=== PATIENT | male | born 1950 | race Caucasian/White ===

== ENCOUNTER 2019-11-22 20:23 | Emergency (ER) | payer MEDICARE, SELFPAY ==
[2019-11-22 20:26] VITALS: BP 156/72; PULSE 55; RESP 15; TEMP 36.1; O2SAT 99
--- NOTE | 2019-11-22 21:34 | ED.WOUNDLAC ---
HPI - Wound/Laceration General Chief Complaint: Wound/Laceration Stated Complaint: cook box filler in arm Time Seen by Provider: 11/22/19 20:48 Source: patient Mode of arrival: ambulatory Limitations: no limitations History of Present Illness HPI narrative: This is a 69-year-old male that presents emergency department for left forearm laceration sustained just prior to arrival. Reports he sustained a laceration from a cook box filler. He is up-to-date on tetanus. Reports bleeding is under control. Denies decreased range of motion or numbness. Related Data Home Medications Medication Instructions Recorded Confirmed Aspir-81 81 mg PO DAILY 11/22/19 11/22/19 Allergies Allergy/AdvReac Type Severity Reaction Status Date / Time No Known Allergies Allergy Unverified 10/05/13 22:03 Review of Systems Review of Systems: Narrative: CONSTITUTIONAL: Denies fever SKIN: Reports laceration All systems reviewed & are unremarkable except as noted in HPI and below PMFSH Social History Social History Smoking status: Never smoker Alcohol intake: never Exam Narrative: Exam Narrative: GENERAL: Well-appearing, well-nourished, and in no acute distress. HEAD: Normocephalic, atraumatic. EYES: EOMI. EXTREMITIES: Normal range of motion. No edema. Left forearm ventral surface with 2 cm linear laceration into subcutaneous tissue, bleeding controlled SKIN: Warm, dry, no rash. NEURO: No focal deficits. Alert and oriented x3. PSYCH: Normal mood and affect Course Vital Signs Vital signs: Vital Signs Temperature 97 F L 11/22/19 20:26 Pulse Rate 55 L 11/22/19 20:26 Respiratory Rate 15 11/22/19 20:26 Blood Pressure 156/72 H 11/22/19 20:26 Pulse Oximetry 99 11/22/19 20:26 Temperature 97 F L 11/22/19 20:26 Pulse Rate 55 L 11/22/19 20:26 Respiratory Rate 15 11/22/19 20:26 Blood Pressure 156/72 H 11/22/19 20:26 Pulse Oximetry 99 11/22/19 20:26 Procedures Laceration Laceration 1: Date: 11/22/19 Time: 22:06 Site: upper extremity Side (If applicable): left Size (cm): 2 Description: linear Depth: simple, single layer Local Anesthetic: lidocaine 1% and with epi Amount of anesthesia used (mL): 2 Pre-repair: irrigated ====== Skin Level ====== Skin layer closed with: nylon Size (cm): 5-0 Number of sutures: 3 Technique: simple, interrupted ====== Subcutaneous Layer ====== ====== Muscle Layer ====== ====== Tendon Layer ====== Dressing: Dressed with antibiotic ointment, Kerlix and Coban MDM - Wound/Laceration MDM Narrative Medical decision making narrative: Patient presents emergency department for laceration sustained by box just prior to arrival. He is up-to-date on tetanus. Laceration was irrigated and closed with sutures. Patient and family were educated on wound care. He is to follow-up with primary care doctor. He was given warnings to return to the ER Critical Care Time Critical Care Time Critical Care Time: No Discharge Plan Discharge Clinical Impression: Laceration Patient Disposition: Home, Self-Care Condition: Stable Instructions: Antibiotic Form, Care For Your Stitches (ED), Laceration (ED) Additional Instructions: Return to the emergency department if you experience fever, redness or swelling of your wound, abnormal drainage from your wound, or any other symptoms that are concerning to you. Apply antibiotic ointment daily. Do not soak the wound. Clean with mild soap and water daily. Take oral antibiotic as prescribed. Tylenol or ibuprofen as needed for pain Follow-up with your primary care doctor for suture removal in 10-14 days. Prescriptions: New cephalexin 500 mg capsule 500 mg PO Q6H 3 Days Qty: 12 RF: 0 No Action Aspir-81 81 mg PO DAILY RF: 0 Follow-up/Referrals: [facility]
[2019-11-22 22:30] VITALS: BP 122/68; PULSE 78; RESP 18; O2SAT 99
== END 2019-11-22 22:31 | disposition home or self-care (01) ==
PROVIDERS: Emergency Provider Emergency Medicine; PCP Family Medicine Adolescent Medicine
DX: S51.812A Laceration without foreign body of left forearm, initial encounter (principal); W27.8XXA Contact with other nonpowered hand tool, initial encounter
CPT/HCPCS: 12001; 99283

== ENCOUNTER 2020-02-05 09:00 | Outpatient (CLI) | payer MEDICARE, SELFPAY | END 2020-02-05 09:01 | disposition home or self-care (01) | LOC: ANHAUDASC 09:01 | PROVIDERS: PCP Family Medicine Adolescent Medicine; Visit Provider Family Medicine Adolescent Medicine | DX: H90.3 Sensorineural hearing loss, bilateral (principal) | CPT/HCPCS: 92557; 92567 ==

== ENCOUNTER → 2020-08-30 13:44 | Outpatient (CLI) | payer MEDICARE, SELFPAY ==
--- NOTE | ~2020-08-30 | MR_ITS ---
EXAMINATION: MR shoulder RT wo con DATE: 08/30/2020 14:37 INDICATION: Right rotator cuff tear presenting with right shoulder pain TECHNIQUE: Magnetic resonance imaging (MRI) of the right shoulder was performed without intravenous c ontrast. Sequences included axial PD-weighted FS FSE, coronal oblique PD-weighted FS FSE, coronal obl ique T2-weighted FS FSE, sagittal PD-weighted FS FSE, and sagittal T1-weighted SE. COMPARISON: None. FINDINGS: Coracoacromial arch: The acromion undersurface is curved in morphology (type II). The coracoacromial ligament is normal. M ild acromioclavicular osteoarthritis with small inferiorly directed osteophytes at the lateral head o f the clavicle which exerts very mild mass effect upon the cephalad surface of the supraspinatus tend on. Rotator cuff: Moderate supraspinatus and infraspinatus tendinopathy with large articular sided tear involving appro ximately 50% of the thickness and the full AP width of both tendons. Small more focal full-thickness tears measuring approximately 7 mm AP by 8 mm medial collateral at the critical zone approximately 1. 5 cm from the footplate of the supraspinatus tendon and measuring 7 mm AP and 1.2 cm medial collatera l at the posterior most footplate of the infraspinatus tendon. The teres minor tendon is normal. Mild subscapularis tendinopathy without discrete tear. Normal rotator cuff muscle bulk and signal. Biceps tendon, glenoid labrum and glenohumeral cartilage: Long head of the biceps tendon is normal. Essentially circumferential tear of the glenoid labrum. Par tial-thickness chondral ulceration with mild subarticular edema and small marginal osteophytes along the anterior, anteroinferior and inferior rim of the glenoid. Tiny marginal osteophytes along the inf eromedial aspect of the humeral head. Fluid: Physiologic amount of fluid in the glenohumeral joint and biceps tendon sheath. No loose osteochondra l bodies. Small amount of fluid in the subacromial/subdeltoid bursa could be due to either mild bursi tis or decompression of joint fluid through the full-thickness rotator cuff tears. Bones: Bone alignment is normal. No fracture or pathologic marrow replacing process. Mild cystic change at t he anterior aspect of the greater tuberosity. IMPRESSION: 1. Moderate supraspinatus and infraspinatus tendinopathy with moderate severity articular sided tear involving the full AP width of both tendons with a couple superimposed small full-thickness tears of both tendons. 2. 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 3. Mild acromioclavicular osteoarthritis. Reviewed, dictated and finalized at location A.
== END ==
PROVIDERS: PCP Family Medicine Adolescent Medicine; Visit Provider Family Medicine Adolescent Medicine
DX: M75.101 Unspecified rotator cuff tear or rupture of right shoulder, not specified as traumatic (principal); M19.011 Primary osteoarthritis, right shoulder
CPT/HCPCS: 73221

== ENCOUNTER 2020-11-12 00:31 | Day surgery (SDC) | payer MEDICARE, SELFPAY ==
[2020-11-05 15:40] VITALS: BMI 24.3
--- NOTE | 2020-11-11 13:02 | WPDANESEPPF ---
Anes - Initial Pre Proc Eval Procedure: Operation Date: 11/12/20 13:30 Proposed Procedures p Right Shoulder Arthroscopy Rotator Cuff Repair - Honorio Jarrett MD Date/Time: 11/11/20 13:02 Surgeon: Honorio Jarrett MD Pre Op Diagnosis: Complete right rotator cuff tear Patient Data Age: 70 Gender: M Height: 1.68 m Weight: 68.18 kg Allergies Allergy/AdvReac Type Severity Reaction Status Date / Time No Known Allergies Allergy Verified 11/05/20 15:25 Home Medications Medication Instructions Recorded Confirmed Type janauqsb-ouz-HB-lycopen-lutein 1 tablet PO DAILY 11/05/20 11/05/20 History [Complete Multi 50+] Patient hx anesthesia problems: none Family hx anesthesia problems: none PMFSH Family History Family History Father Colon cancer Social History Social History Smoking status: Never smoker Second hand tobacco smoke exposure: No Alcohol intake: never Substance use: never Substance use type: does not use Living arrangements: with family Spiritual care concerns: No Anes - Eval Final PreProcedure Day of Procedure 11/11/20 13:02 Patient weight: normal Heart: regular rate and rhythm Lungs: clear to auscultation and normal air movement Airway: Mallampati scale class II Neurological: alert and oriented Last oral intake: >/= 8 hours ASA classification: I Emergent: no Anesthetic plan: proceed Anesthesia type and monitoring: general LMA Informed Consent: The patient's anesthetic plan and its attendant risks and benefits were discussed with the patient/family/POA. Questions were solicited and answers provided to the satisfaction of the patient/family/POA.
--- NOTE | 2020-11-11 13:03 | WPDANESPNB ---
Anes - Peripheral Nerve Block Date/Time: 11/11/20 13:03 I have discussed with the patient/family/POA the placement of a peripheral nerve block for post-operative pain management, including associated risks, benefits, complications, and side effects. Alternative methods of post-operative analgesia were detailed. Questions were solicited and answers provided to the satisfaction of the patient/family/POA. Time-Out: A pre-procedural Time-Out was completed immediately before starting the procedure and confirmed: Patient Identification, Site, Procedure, Patient Position and the Availability of Requisite Equipment. Clinical Indications: Acute post-operative pain management requested by the operative surgeon. Nerve Block Insertion Note Anes-nerve block: supraclavicular right Patient position: supine Skin prep: chlorhexidine Needle: 22 gauge, stimulating, insulated echogenic needle. Needle length: 80 mm Technique: ultrasound (in plane) Injectate: bupivacaine 0.5% with epi 5 mcg/ml (20cc) Observations: tolerated well Complications: none Procedure start time:: 1345 Procedure end time:: 1350
[2020-11-12] VITALS (7 sets, daily range): BP systolic 131–144; BP diastolic 62–86; PULSE 51–59; RESP 14–19; TEMP 36.2; O2SAT 98–100
--- NOTE | 2020-11-12 07:20 | WPDHPUPDATE1 ---
History and Physical Update Update Date/Time: 11/12/20 07:20 History and Physical has been reviewed, including an updated exam of the patient. There are NO changes in the patient's condition. Risks, benefits, and alternatives have been discussed and questions answered. Patient agrees to proceed with procedure.
[2020-11-12] MEDS: LACTATED RINGERS 1,000 ML 30 ML IV CONT (12:20)
[2020-11-12] MEDS: ACETAMINOPHEN 500 MG TABLET 1000 MG PO (12:33)
[2020-11-12] MEDS: KETOROLAC 15 MG/ML VIAL (*BKC) IV PUSH (12:33)
[2020-11-12] MEDS: ceFAZolin 2 GM/D5W 50 ML 2 GM/50 ML BAG IVPB (14:12)
--- NOTE | 2020-11-12 16:39 | W.PM.PROC2 ---
Procedure Note - Detailed Date of Procedure 11/12/20 Pre-op Diagnosis Complete right rotator cuff tear Post-op Diagnosis other (1. Right rotator cuff tear (massive) 2. SLAP tear 3. Degenerative labral tear 4. Subacromial impingement ) Procedure Performed 1. Arthroscopic rotator cuff repair 2. Arthroscopic subacromial decompression 3. Arthroscopic biceps tenodesis 4. Arthroscopic labral debridement Surgeon Honorio Jarrett MD Executive Vice President And Chief Operating Officer Yajaira Holbrook PA-C Anesthesia general and regional ( interscalene block) Findings Massive tear. Acute on chronic. Care taken to repair the tear with as little tension as possible. Slap tear and degenerative labrum with mild early arthritis. The labrum was debrided with the arthroscopic shaver and the radiofrequency probe to a stable rim. Biceps tenodesis performed. Description of Procedure Physician surgical services assistant, Yajaira Holbrook PA-C, required for surgery; including patient positioning, draping, arthroscopic camera operation, maintaining instrument position, suture retrieval, wound closure, and dressing and sling placement. Preoperative antibiotics were given. An interscalene block was administered in the preoperative area. The patient was bought brought to the operating room. A general anesthetic was administered. The patient was carefully positioned in the lateral decubitus position. The head and neck were carefully positioned. The non operative extremity was also carefully positioned. The shoulder was prepped and draped in the usual sterile fashion. Examination was performed. Standard posterior and anterior arthroscopic portals were established. Inflow achieved with the arthroscopic pump using saline and epinephrine. The glenohumeral joint was carefully inspected. the massive tear was clearly identified. Mild degenerative changes at the labrum and glenoid anteriorly and somewhat posteriorly as well the labrum itself was split in tearing throughout most of its circumference. The biceps showed slap tear as well as degeneration of the biceps at the anchor point. The sub scapularis showed only mild upper border fraying. Attention was turned to the subacromial space. A complete bursectomy was performed. The rotator cuff and footprint were lightly debrided. A modest acromioplasty was performed. Care was taken to limit the acromioplasty due to the massive tear and the risk of escape in the future. The tear configuration was carefully assessed. It was elected to do a single row repair. This was placed at the articular margin and a small amount of articular cartilage was lightly debrided. Each all suture anchor was triple loaded and simple sutures were placed from posterior to anterior. The anterior most suture was incorporated into the biceps tendon with a locking loop double pass suture repair. The sutures were tied arthroscopically. The arthroscopic instruments were removed. The wounds were closed with 3-0 Monocryl subcuticular suture and steri strips. There were no complications. A sling was applied and the patient brought to the recovery room. Implants [employer] all suture anchors triple loaded x3. Estimated Blood Loss 20 Pathology none sent Complications No immediate complications Condition stable Disposition PACU
--- NOTE | 2020-11-12 18:52 | SUR.PHASEII ---
1830 THIS RN SUPPORTED RIGHT ARM WHILE ASSISTED PATIENT TO GET DRESSED.
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
== END 2020-11-12 18:45 | disposition home or self-care (01) ==
PROVIDERS: PCP Family Medicine Adolescent Medicine; Visit Provider Orthopaedic Surgery
PROC: (CPT 29805; principal; 2020-11-12 13:30)
DX: S46.011A Strain of muscle(s) and tendon(s) of the rotator cuff of right shoulder, initial encounter (principal); S43.431A Superior glenoid labrum lesion of right shoulder, initial encounter; M19.011 Primary osteoarthritis, right shoulder; M75.41 Impingement syndrome of right shoulder; G89.18 Other acute postprocedural pain; W01.0XXA Fall on same level from slipping, tripping and stumbling without subsequent striking against object, initial encounter; Y93.01 Activity, walking, marching and hiking
CPT/HCPCS: 64415; 29827; 29826; 29828; A4565; A9270; J0690; J1100; J1885; J2250; J2405; J2704; J2710; J3010; J7120

== ENCOUNTER 2021-04-14 00:22 | Day surgery (SDC) | payer MEDICARE, SELFPAY ==
[2021-03-26 13:57] VITALS: BMI 25.0
[2021-04-14 09:55] VITALS: BP 151/61; PULSE 50; RESP 18; TEMP 36.1; O2SAT 99; BMI 25.5
[2021-04-14] MEDS: LACTATED RINGERS 1,000 ML 150 ML IV CONT (10:13)
--- NOTE | 2021-04-14 10:13 | P.CONGI_ITS ---
Assessment and Plan Assessment and plan (1) Family history of colon cancer in father: Code(s): Z80.0 - Family history of malignant neoplasm of digestive organs Status: Acute Assessment and Plan: Patient's father had colon cancer. Therefore suggest follow-up colonoscopy at 5 year intervals. (2) History of colon polyps: Code(s): Z86.010 - Personal history of colonic polyps Status: Acute Assessment and Plan: Patient has had prior colon polyps most recently 2012. Plan is for surveillance colonoscopy now and at 5 year intervals in the future. GI Consult Note Consult date/time: 04/14/21 10:13 HPI: Hossein Olmos is a 70 year old male Presents for screening colonoscopy. Patient's past history is significant for colon polyps in 2012. His family history is significant his father had colon cancer. Patient reports that his current weight appetite and bowel movements are normal. He denies abdominal pain. He has had no bleeding. He presents today for neoplasia screening. Review of Systems Review of Systems: All systems reviewed & are unremarkable except as noted in HPI and below PMFSH Surgical History Surgical History History of repair of right rotator cuff (~11/12/20) Family History Family History Father Colon cancer Social History Social History Smoking status: Former smoker Tobacco type: cigarettes Second hand tobacco smoke exposure: No Alcohol intake: never Substance use: never Substance use type: does not use Living arrangements: with family Spiritual care concerns: No Meds Home Medications and Allergies Home Medications Medication Instructions Recorded Confirmed Type No Home Medications 03/17/21 03/17/21 History Allergies Allergy/AdvReac Type Severity Reaction Status Date / Time No Known Allergies Allergy Verified 04/14/21 09:53 Vital Signs Vital Signs - 24 hr 04/14/21 09:55 Temperature 97 F L Pulse Rate 50 L Respiratory Rate 18 Blood Pressure 151/61 H Pulse Oximetry 99 Exam Narrative: Physical exam reveals patient to be alert. Vital signs stable. HEENT exam is unremarkable. Patient is anicteric. Lungs are clear to ausc ultation and percussion. Heart is without murmur or extra sounds. Abdominal exam bowel sounds are present soft nontender with no organomegaly. Digital external rectal exam is normal.
--- NOTE | 2021-04-14 10:20 | P.PNAN_ITS ---
Anes - Initial Pre Proc Eval Procedure: Operation Date: 04/14/21 11:00 Proposed Procedures p Screening Colonoscopy - Barber Bran MD Date/Time: 04/14/21 10:20 Surgeon: Barber Bran MD Pre Op Diagnosis: hx of colon polyps Patient Data Age: 70 Gender: M Height: 1.68 m Weight: 71.8 kg Last Vital Signs Temp 36.1 C L 04/14/21 09:55 Pulse 50 L 04/14/21 09:55 Resp 18 04/14/21 09:55 BP 151/61 H 04/14/21 09:55 Pulse Ox 99 04/14/21 09:55 Allergies Allergy/AdvReac Type Severity Reaction Status Date / Time No Known Allergies Allergy Verified 04/14/21 09:53 Home Medications Medication Instructions Recorded Confirmed Type No Home Medications 03/17/21 03/17/21 History Patient hx anesthesia problems: none Family hx anesthesia problems: none Results Review: All pre-operative results and documents have been reviewed as part of the pre-operative evaluation. [facility] [place] Surgical History Surgical History History of repair of right rotator cuff (~11/12/20) Family History Family History Father Colon cancer Social History Social History Smoking status: Former smoker Tobacco type: cigarettes Second hand tobacco smoke exposure: No Alcohol intake: never Substance use: never Substance use type: does not use Living arrangements: with family Spiritual care concerns: No Anes - Eval Final PreProcedure Day of Procedure 04/14/21 10:20 Patient weight: overweight Heart: regular rate and rhythm Lungs: clear to auscultation and normal air movement Airway: Mallampati scale class II Neurological: alert and oriented Last oral intake: >/= 8 hours ASA classification: II Emergent: no Anesthetic plan: proceed Anesthesia type and monitoring: general GIVS and standard monitoring Results Review: All pre-operative results and documents have been reviewed as part of the pre-operative evaluation. Informed Consent: The patient's anesthetic plan and its attendant risks and benefits were discussed with the patient/family/POA. Questions were solicited and answers provided to the satisfaction of the patient/family/POA.
[2021-04-14 11:04] VITALS: BP 96/49; PULSE 49; RESP 16; O2SAT 97
[2021-04-14 11:14] VITALS: BP 116/61; PULSE 46; RESP 24; O2SAT 100
[2021-04-14 11:24] VITALS: BP 142/71; PULSE 49; RESP 18; O2SAT 100
== END 2021-04-14 11:32 | disposition home or self-care (01) ==
PROVIDERS: PCP Family Medicine Adolescent Medicine; Visit Provider Internal Medicine Gastroenterology
PROC: 0DJD8ZZ Inspection of Lower Intestinal Tract, Via Natural or Artificial Opening Endoscopic (ICD-10-PCS; CPT 45378; principal; 2021-04-14 11:00)
DX: Z12.11 Encounter for screening for malignant neoplasm of colon (principal); Z80.0 Family history of malignant neoplasm of digestive organs; K64.8 Other hemorrhoids; K62.1 Rectal polyp; Z87.891 Personal history of nicotine dependence
CPT/HCPCS: 45385; 88305; J2704; J7120

== ENCOUNTER 2022-12-18 11:14 | Emergency (ER) | payer MEDICARE, SELFPAY ==
[2022-12-18 11:30] VITALS: BP 128/72; PULSE 53; RESP 18; TEMP 36.3; O2SAT 100
--- NOTE | 2022-12-18 12:38 | ED.SKABFB ---
HPI - Skin/Abscess/Foreign Bdy General Chief complaint: Skin/Abscess/Foreign Body Stated complaint: Skin Discomfort Time Seen by Provider: 12/18/22 12:20 Source: patient, RN notes reviewed and old records reviewed Mode of arrival: ambulatory Limitations: no limitations History of Present Illness HPI narrative: 72 year old male presents to express care [facility] home complaints of 4 day history of skin soreness to bilateral chest with chills. Patient states he can't tolerate blanket across chest due to soreness of skin. Patient reports that he had similar sensation in past when he had COVID. He reports that he took a home COVID test which was negative. Patient denies any known fevers, denies any cough or sore throat of any other areas of body soreness or aching. He called his doctor office but was not able to be seen today so he came to express care. Patient has no rash or redness to chest tissue,no vesicles or any itching. MD complaint: other (skin soreness across chest bilaterally) Onset (ago): day(s) (4) Severity scale (1-10): 3 Treatments prior to arrival: none Related Data Home Medications Medication Instructions Recorded Confirmed aspirin 81 mg tablet,delayed 81 mg PO DAILY 11/18/21 12/18/22 release (Adult Low Dose Aspirin) Allergies Allergy/AdvReac Type Severity Reaction Status Date / Time No Known Allergies Allergy Verified 12/18/22 11:30 Review of Systems Review of Systems: CONSTITUTIONAL: Denies fever, states some chills, no sweats. EYES: Denies visual changes, redness, or discharge. ENT: Denies rhinorrhea, congestion, sore throat, or otalgia. CARDIOVASCULAR: Denies chest pain, palpitations, or edema. RESPIRATORY: Denies cough or dyspnea. GASTROINTESTINAL: Denies abdominal pain, nausea, vomiting, or diarrhea. GENITOURINARY: Denies dysuria or hematuria. SKIN: Denies rash or itching. reports soreness sensation of skin across his chest, no rash or redness noted MUSCULOSKELETAL: Denies back pain, joint pain, or myalgia. NEUROLOGIC: Denies headache, numbness, or weakness. PSYCHIATRIC: Denies anxiety or depression. All systems reviewed & are unremarkable except as noted in HPI and below PMFSH Past Medical History Medical History (Updated 12/19/22 @ 18:36 by Deysi Villarreal NP) Complete tear of right rotator cuff Elevated cholesterol Family history of colon cancer in father History of colon polyps Ocular migraine Surgical History Surgical History History of rotator cuff surgery (11/2020) Right 11/30 Family History Family History Father Colon cancer Carcinoma of colon Colon polyp Diabetes mellitus Mother Diabetes mellitus Social History Social History Smoking status: Former smoker Tobacco type: cigarettes Second hand tobacco smoke exposure: No Alcohol intake: never Substance use: never Substance use type: does not use Living arrangements: with family Spiritual care concerns: No Comments At time of signature, agree with nursing past medical, surgical, social and family history. There is no relevant family history pertinent to the presenting complaint Exam Narrative: GENERAL: Well-appearing, well-nourished, and in no acute distress. HEAD: Normocephalic, atraumatic. EYES: PERRLA and EOMI. ENT: Nares clear, no rhinorrhea or epistaxis. Mucous membranes moist.TM's normal, throat pink with no lesions or swelling NECK: Supple.no lymphadenopathy CHEST: Clear to auscultation. No respiratory distress.no cough SAO2 100% on room air HEART: Regular rate and rhythm. No murmur heard. Normal peripheral pulses. ABDOMEN: Soft, nontender, nondistended, normal active bowel sounds. EXTREMITIES: Normal range of motion. No edema. SKIN: Warm, dry, no rash, no redness of skin across chest reports skin soreness to bilateral chest area, den
== END 2022-12-18 12:58 | disposition home or self-care (01) ==
PROVIDERS: Emergency Provider Registered Nurse; PCP Family Medicine Adolescent Medicine
DX: R20.8 Other disturbances of skin sensation (principal); Z87.891 Personal history of nicotine dependence; E78.00 Pure hypercholesterolemia, unspecified
CPT/HCPCS: 99213; G0463

== ENCOUNTER 2024-12-21 09:54 | Outpatient (CLI) | payer MEDICARE, SELFPAY ==
--- NOTE | ~2024-12-21 | XR_ITS ---
EXAMINATION: XR shoulder LT min 2V, 12/21/2024 9:58 CDT HISTORY: M77.8 - Other enthesopathies, not elsewhere classified COMPARISON: No comparisons available. Findings: No acute fracture or malalignment. Moderate degenerative changes Soft tissues unremarkable. Impression: No acute fracture or malalignment. Reviewed, dictated and finalized at location A. Impression: No acute fracture or malalignment.
== END 2024-12-21 09:55 | disposition home or self-care (01) ==
LOC: MICIMG 09:54
PROVIDERS: PCP Family Medicine Adolescent Medicine; Visit Provider Family Medicine Adolescent Medicine
DX: M77.8 Other enthesopathies, not elsewhere classified (principal)
CPT/HCPCS: 73030

== ENCOUNTER 2025-01-26 07:48 | Outpatient (CLI) | payer MEDICARE, SELFPAY ==
--- NOTE | ~2025-01-26 | MR_ITS ---
EXAMINATION: MR shoulder LT wo con DATE: 01/26/2025 08:29 INDICATION: Other enthesopathies, not elsewhere classified. Limited range of motion of the left shoulder. TECHNIQUE: Magnetic resonance imaging (MRI) of the left shoulder was performed without intravenous contrast. Sequences included axial PD-weighted FS FSE, coronal oblique PD-weighted FS FSE and T2-weighted FS FSE, and sagittal oblique T2-weighted FS FSE and T1-weighted FSE. COMPARISON: Left shoulder radiographs 12/21/2024 FINDINGS: Coracoacromial arch: The acromion undersurface is curved in morphology with anterior hook (type III). There is mild acromioclavicular joint osteoarthritis. There is mild subacromial/subdeltoid bursitis. Rotator cuff: There is severe supraspinatus and infraspinatus tendinopathy. There is an articular-sided partial-thickness tear of the conjoined portion of the tendon measuring 9 mm anterior to posterior by 16 mm proximal to distal by 50% tendon thickness. Teres minor tendon is normal. There is mild subscapularis ten dinopathy. There is no asymmetric fatty atrophy of the rotator cuff muscle bellies. Biceps tendon and glenoid labrum: Biceps tendon is in bicipital groove. There is a partial tear of biceps tendon. There is degenerative tearing of the glenoid labrum. There is a 13 x 3 mm paralabral cyst anteriorly. Fluid: There is a moderate-sized glenohumeral joint effusion. Bones/cartilage: There is partial-thickness cartilage loss of humeral head and glenoid. IMPRESSION: 1. Partial thickness rotator cuff tear. 2. Mild glenohumeral joint chondrosis. SLAP tear. 3. Mild acromioclavicular joint osteoarthritis. 4. Partial tear of biceps tendon. 5. Moderate-sized glenohumeral joint effusion. 6. Mild subacromial/subdeltoid bursitis. Reviewed, dictated and finalized at location E.
== END 2025-01-26 07:49 | disposition home or self-care (01) ==
LOC: MICIMG 07:51
PROVIDERS: PCP Family Medicine Adolescent Medicine; Visit Provider Family Medicine Adolescent Medicine
DX: M77.8 Other enthesopathies, not elsewhere classified (principal); M75.102 Unspecified rotator cuff tear or rupture of left shoulder, not specified as traumatic; M94.212 Chondromalacia, left shoulder; S43.432A Superior glenoid labrum lesion of left shoulder, initial encounter; X58.XXXA Exposure to other specified factors, initial encounter; M19.012 Primary osteoarthritis, left shoulder; M75.52 Bursitis of left shoulder
CPT/HCPCS: 73221

== ENCOUNTER 2025-02-07 11:30 | Outpatient (CLI) | payer MEDICARE, SELFPAY ==
--- NOTE | 2025-02-07 11:45 | ECG_ITS ---
Test Date: 2025-02-07 11:54:24 Measurements Intervals [place] Rate: 51 P: 37 [place]: 144 QRS: 5 QRSD: 105 T: 35 QT: 419 QTc: 386 Interpretive Statements SINUS BRADYCARDIA BASELINE ARTIFACT- I, II, III, AVR, AVL, AVF BORDERLINE ECG No previous ECG available for comparison Electronically Signed On 02-07-2025 11:58:38 CDT by Adama Mathew D.O.
== END 2025-02-07 11:31 | disposition home or self-care (01) ==
LOC: ANHLAB 11:33
PROVIDERS: PCP Family Medicine Adolescent Medicine; Visit Provider Orthopaedic Surgery
DX: Z01.818 Encounter for other preprocedural examination (principal); E78.00 Pure hypercholesterolemia, unspecified; R94.31 Abnormal electrocardiogram [ECG] [EKG]
CPT/HCPCS: 93005